=== PATIENT | male | born 1970 | race Caucasian/White ===

== ENCOUNTER 2016-12-05 10:56 | Outpatient (CLI) | payer OTHER | END 2016-12-05 10:57 | disposition home or self-care (01) | DX: G47.33 Obstructive sleep apnea (adult) (pediatric) (principal) ==

== ENCOUNTER 2017-02-01 14:11 | Outpatient (CLI) | payer OTHER | END 2017-02-01 14:12 | disposition home or self-care (01) | LOC: SC 14:11 | PROVIDERS: ATTEND Nurse Practitioner Family | DX: G47.33 Obstructive sleep apnea (adult) (pediatric) (principal) | CPT/HCPCS: 99212; 99214 ==

== ENCOUNTER 2017-07-27 08:50 | Outpatient (CLI) | payer OTHER | END 2017-07-27 08:51 | disposition home or self-care (01) | LOC: SC 08:50 | PROVIDERS: ATTEND Nurse Practitioner Family | DX: G47.33 Obstructive sleep apnea (adult) (pediatric) (principal) | CPT/HCPCS: 99212; 99214 ==

== ENCOUNTER 2017-12-14 08:36 | Outpatient (CLI) | payer OTHER ==
[2017-12-14 13:52] LABS: ALBUMIN 4.6 g/dL (3.2-5.5); ALBUMIN/GLOBULIN RATIO 1.7 (1.0-2.2); ALKALINE PHOSPHATASE 50 IU/L (42-121); ALT ALANINE AMINOTRANSFERASE 33 IU/L (10-60); AST ASPARTATE AMINOTRANSFERASE 34 IU/L (10-42); BILIRUBIN,TOTAL 0.5 mg/dL (0.2-1.0); BUN - BLOOD UREA NITROGEN 17 mg/dL (6-20); CALCIUM 9.4 mg/dL (8.5-10.3); CARBON DIOXIDE - CO2 27 mmol/L (21-32); CHLORIDE 104 mmol/L (101-111); CHOL/HDL RATIO 4.2 (<5.0); CHOLESTEROL 179 mg/dL; GFR - MDRD 80 (>89); GLUCOSE 106 mg/dL (70-100); HDL CHOLESTEROL 43 mg/dL; LDL CHOLESTEROL,CALCULATED 121 mg/dL; LDL/HDL RATIO 2.8 (<3.6); SODIUM 138 mmol/L (135-145); TOTAL PROTEIN 7.3 g/dL (6.7-8.2); VLDL CHOLESTEROL 15 mg/dL
== END 2017-12-14 08:37 ==
LOC: LAB.WCP 08:36
PROVIDERS: ATTEND Family Medicine
DX: E78.5 Hyperlipidemia, unspecified (principal); Z12.5 Encounter for screening for malignant neoplasm of prostate
CPT/HCPCS: 36415; 80053; 80061; 83721; 84153

== ENCOUNTER 2018-01-02 14:44 | Emergency (ER) | payer OTHER ==
[2018-01-02 14:56] VITALS: BP 161/100
--- NOTE | 2018-01-02 15:04 | ED Physician Documentation ---
PD HPI HEENT - Stated complaint Stated Complaint: L EAR PX - Chief complaint Chief Complaint: Heent - History obtained from History obtained from: Patient - History of Present Illness Timing - onset: Other (He had cough and cold symptoms over the last week which have resolved, but over the last day he has developed severe left ear pain radiating down towards the jaw and decreased hearing and some drainage today.) Review of Systems Constitutional: denies: Fever, Chills Nose: reports: Rhinorrhea / runny nose Throat: reports: Sore throat PD PAST MEDICAL HISTORY - Past Medical History Past Medical History: No Endocrine/Autoimmune: None GI: None : Kidney stones - Past Surgical History Past Surgical History: Yes - Present Medications Home Medications: Ambulatory Orders Medication Instructions Recorded Confirmed Loratadine [Claritin] 10 mg PO DAILY 12/26/14 06/23/15 Omeprazole [Prilosec] 20 mg PO DAILY 12/26/14 06/23/15 Amox/Clav 875/125 [Augmentin] 1 each PO Q12H #20 tablet 01/02/18 Ofloxacin [Floxin] 5 drops LEFTEAR BID 10 Days #1 01/02/18 drops buPROPion HCl [Bupropion HCl] 01/02/18 - Allergies Allergies/Adverse Reactions: Allergies Allergy/AdvReac Type Severity Reaction Status Date / Time Sulfa (Sulfonamide Allergy Intermediate Rash Verified 03/12/13 01:15 Antibiotics) - Social History Does the pt smoke?: No Smoking Status: Never smoker Does the pt drink ETOH?: No Does the pt have substance abuse?: No - Immunizations Immunizations are current?: Yes - POLST Patient has POLST: No PD ED PE NORMAL - Vitals Vital signs reviewed: Yes - General General: Alert and oriented X 3, No acute distress - HEENT HEENT: Pharynx benign, Other (Right TM is normal. He has severe left otitis media with perforation and a small amount of blood in the canal.) - Neck Neck: Supple, no meningeal sign, No bony TTP - Neuro Neuro: Alert and oriented X 3, Normal speech Results - Vitals Vitals: Vital Signs - 24 hr 01/02/18 14:52 Temperature 36.4 C L Heart Rate 89 Respiratory 18 Rate Blood Pressure 161/100 H O2 Saturation 98 Oxygen O2 Source Room air PD MEDICAL DECISION MAKING - Sepsis Event Vital Signs: Vital Signs - 24 hr 01/02/18 14:52 Temperature 36.4 C L Heart Rate 89 Respiratory 18 Rate Blood Pressure 161/100 H O2 Saturation 98 Oxygen O2 Source Room air Departure - Departure Disposition: 01 Home, Self Care Clinical Impression: Acute otitis media of left ear with perforation Condition: Good Record reviewed to determine appropriate education?: Yes Instructions: ED Rupture Eardrum Infec Follow-Up: Seferino Rawls MD [Primary Care Provider] - Within 1 week Prescriptions: Amox/Clav 875/125 [Augmentin] 1 each PO Q12H #20 tablet Ofloxacin [Floxin] 5 drops LEFTEAR BID 10 Days #1 drops Comments: Your blood pressure was elevated today on check into the emergency department. This does not mean that you have hypertension, it is a common phenomenon to come to the emergency department and have elevated blood pressure. I recommend that you see your primary care physician within the week to have it rechecked when you are feeling better.
== END 2018-01-02 15:07 | disposition home or self-care (01) ==
LOC: ED 14:44
DX: H66.92 Otitis media, unspecified, left ear (principal); R03.0 Elevated blood-pressure reading, without diagnosis of hypertension
CPT/HCPCS: 99283

== ENCOUNTER 2019-06-19 09:35 | Outpatient (CLI) | payer OTHER ==
--- NOTE | 2019-06-19 23:45 | XRAY Report ---
Reason: ARTHRITIS KNEES,BILATERAL Procedure Date: 06/19/2019 Accession Number: [id number] / [id number] Procedure: XR - Knee 3 View BILAT CPT Code: Final Report FULL RESULT: EXAMS: 1. Right Knee Radiography 2. Left Knee Radiography EXAM DATE:06/19/2019 10:50 AM. CLINICAL HISTORY:ARTHRITIS KNEES,BILATERAL. COMPARISON: None. TECHNIQUE: 3 views each. FINDINGS: Right Knee: Bones: Normal. No fractures or bone lesions. Joints: Mild osteoarthritis, with tiny osteophytes. No effusion. Soft Tissues: Normal. No soft tissue swelling. Left Knee: Bones: Normal. No fractures or bone lesions. Joints: Mild osteoarthritis, with tiny osteophytes. No effusion. Soft Tissues: Normal. No soft tissue swelling. IMPRESSION: Mild bilateral osteoarthritis. RADIA
== END 2019-06-19 09:36 | disposition home or self-care (01) ==
LOC: DI 09:35
PROVIDERS: ATTEND Family Medicine
DX: M17.0 Bilateral primary osteoarthritis of knee (principal)

== ENCOUNTER 2019-06-24 15:20 | Outpatient (CLI) | payer OTHER ==
[2019-06-24 17:40] VITALS: BP 126/90
--- NOTE | 2019-06-24 17:40 | SLEEP CARE CONSULTATION ---
Information from patient questionnaire entered by Sofia Ibrahim. I have reviewed and concur with the information entered by Sofia Ibrahim. This document represents the service I personally performed and the decisions made by me, Dana Joy, RN, MSN, HOTBED TRANSFER OPERATOR. History of Present Illness Previous diagnosis: Moderate, Obstructive Sleep Apnea-Hypopnea Syndrome AHI: 25.4 Reason for follow up: annual Equipment type: CPAP Equipment obtained from: [facility] [place] (having difficulty getting supplies) Mask style: Nasal (Dreamwear) Mask brand: Respironics Backup mask available: No Last cushion change: 1-2 months ago Prior sleep studies: Yes CPAP Compliance Data - Data Reviewed with Patient Average duration of nightly device use: 5h 47m Compliance rate %: 75 Current pressure setting (cmH2O): 9-15 Humidity settin Heated hose settin Average residual AHI: 2 Average large leak: 2s Subjective Patient concerns: reports: nasal congestion (chronic - uses saline nasal spray after CPAP use. ), dry mouth, nose, throat (only when water runs out of reservoir) Observed to snore while using device: No Current pressure setting perceived as: comfortable On therapy, patient: reports: sleeping better, awakening more refreshed, being more awake and alert during the day, more rested overall. denies: drowsiness while driving Initial [place] Sleepiness Scale score: 8 Current [place] Sleepiness Scale score: 4 Allergies and Home Medications Known drug allergies: Yes Home medication list reviewed: Yes Allergy and home medication list: Medication Name (generic/name brand) Strength & Dosage Omeprazole 20mg ? daily Claritin 10mg ? daily Welbutrin 150mg daily Review of Systems Review of systems same as previous: Yes Physical Exam Blood Pressure: 126/90 (stressful day reported / guidelines discussed for follow up and healt risks of high blood pressure) Heart Rate: 96 O2 Saturation: 97 Weight: 240 lb (with complete 30 pound gear for job, ) Impression and Plan Obstructive Sleep Apnea-Hypopnea Syndrome, moderate , with good compliance and apnea control. On CPAP therapy, he has improved sleep quality and continues to feel more rested overall. For supply concerns, he is informed that he can transfer to another DME. I will have the cash applications coordinator inform him of his options. A DWO prescription will be made. He is advised to obtain a minimum of 6 hours. Less than 5-6 hours of sleep can contribute to health risks. 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 He is aware of shift sleep practices to facilitate sleep during the day. I explained that most people require 7-9hours for optimal mental and physical function. Thus is he strives for 7 hours maybe he will get more sleep. Nasal congestion can be reduced by increasing the humidity. The heated hose is only to be adjusted if condensation. In addition, he is to use his saline nasal prior to CPAP to clear nose of dried secretions and adhering allergens. His night shower before bed will also facilitate nasal drainage. Patients apnea severity was reviewed and rationale for treatment to reduce apnea, improve sleep quality and reduce cardiovascular and cerebrovascular events. I also reviewed the benefit of his consistent CPAP use to his gerd. Patient is encouraged to call this office if he has any difficulty using CPAP or return of symptoms before his next appointment. PLAN: Continue with nasal CPAP pressure at 9-15 cm H2O. * Transfer of care to new DME. * Adjust humidity / heated hose * Implement methods to reduce nasal congestion. * Obtain more sleep. * He is to notify me if he finds that he snores with the mask or feels that the pressure is too much or too little. * Return for follow up in year , sooner if concerns. I spent 100% of this 33 minute office visit, face to face with the patient, with greater than 50% of the time counseling the patient and coordination of care.
== END 2019-06-24 15:21 | disposition home or self-care (01) ==
LOC: SC 15:20
PROVIDERS: ATTEND Nurse Practitioner Family
DX: G47.33 Obstructive sleep apnea (adult) (pediatric) (principal)
CPT/HCPCS: 99212; 99214

== ENCOUNTER 2020-05-14 18:50 | Emergency (ER) | payer OTHER ==
[2020-05-14 18:57] VITALS: BP 151/94
[2020-05-14] MEDS ORDERED: PROPARACAINE 0.5% OPHTH DROPS 15 ML EACHEYE STA (19:01)
--- NOTE | 2020-05-14 19:11 | ED Physician Documentation ---
PD HPI OPHTHO - Stated complaint Stated Complaint: LT EYE PX - Chief complaint Chief Complaint: Heent - History obtained from History obtained from: Patient - History of Present Illness Timing - onset: Yesterday Timing - duration: Days (1) Timing - details: Gradual onset Pain level max: 3 Pain level now: 1 Location: Left Quality / character: Aching Associated symptoms: Redness, Tearing, FB sensation. No: Swelling, Discharge, Photophobia Contributing factors: FB (wood after using chainsaw) Recently seen: Not recently seen Review of Systems Constitutional: denies: Fever Eyes: denies: Decreased vision PD PAST MEDICAL HISTORY - Past Medical History Past Medical History: Yes Endocrine/Autoimmune: None GI: None : Kidney stones HEENT: Chronic sinusitis Psych: Depression - Past Surgical History Past Surgical History: Yes - Present Medications Home Medications: Ambulatory Orders Medication Instructions Recorded Confirmed Loratadine [Claritin] 10 mg PO DAILY 12/26/14 06/23/15 Omeprazole [Prilosec] 20 mg PO DAILY 12/26/14 06/23/15 Amox/Clav 875/125 [Augmentin] 1 each PO Q12H #20 tablet 01/02/18 Ofloxacin [Floxin] 5 drops LEFTEAR BID 10 Days #1 01/02/18 drops buPROPion HCL [Bupropion HCl] 01/02/18 - Allergies Allergies/Adverse Reactions: Allergies Allergy/AdvReac Type Severity Reaction Status Date / Time Sulfa (Sulfonamide Allergy Intermediate Rash Verified 01/02/18 15:03 Antibiotics) - Social History Does the pt smoke?: No Smoking Status: Never smoker Does the pt drink ETOH?: No Does the pt have substance abuse?: No - Immunizations Immunizations are current?: Yes - POLST Patient has POLST: No PD ED PE NORMAL - Vitals Vital signs reviewed: Yes - General General: Alert and oriented X 3, No acute distress - HEENT HEENT: Moist mucous membranes, Other (L eye - conjunctival injection. FB under upper eyelid. Removed. No corneal abrasion.) - Neck Neck: Supple, no meningeal sign - Derm Derm: Warm and dry - Neuro Neuro: Alert and oriented X 3 - Psych Psych: Normal mood, Normal affect Results - Vitals Vitals: Vital Signs - 24 hr 05/14/20 18:52 Temperature 36.8 C Heart Rate 87 Respiratory 16 Rate Blood Pressure 151/94 H O2 Saturation 99 Oxygen O2 Source Room air PD MEDICAL DECISION MAKING - ED course Complexity details: considered differential, d/w patient ED course: Foreign body was removed from under the upper eyelid with a cotton swab. Tolerated well. No residual foreign body. No corneal abrasion. Eyelids were everted. Patient counseled regarding signs and symptoms for which I believe and urgent re-evaluation would be necessary. Patient with good understanding of and agreement to plan and is comfortable going home at this time This document was made in part using voice recognition software. While efforts are made to proofread this document, sound alike and grammatical errors may occur. Departure - Departure Disposition: Home, Self Care Clinical Impression: Eye foreign body Qualifiers: Encounter type: initial encounter Laterality: left Qualified Code(s): T15.92XA - Foreign body on external eye, part unspecified, left eye, initial encounter Condition: Good Instructions: ED Eye Particle Conjunctiva FB Rslv Follow-Up: Seferino Rawls MD [Primary Care Provider] - As Needed Comments: Return if you worsen. A piece of wood was removed from your eye tonight.
== END 2020-05-14 19:18 | disposition home or self-care (01) ==
LOC: ED 18:50
DX: T15.92XA Foreign body on external eye, part unspecified, left eye, initial encounter (principal); X58.XXXA Exposure to other specified factors, initial encounter
CPT/HCPCS: 65205; 99282; J3490

== ENCOUNTER 2020-11-16 15:28 | Emergency (ER) | payer OTHER ==
[2020-11-16] MEDS ORDERED: SODIUM CHLORIDE 0.9% 1,000 ML IV STA (15:57)
[2020-11-16 16:09] LABS: BASOPHILS # (AUTO) 0.1 10^3/uL (0.0-0.1); BASOPHILS % (AUTO) 0.6 %; EOSINOPHILS # (AUTO) 0.2 10^3/uL (0.0-0.7); EOSINOPHILS % (AUTO) 2.3 %; HCT - HEMATOCRIT 44.6 % (42.0-52.0); LYMPHOCYTES % (AUTO) 21.9 %; MEAN CORPUSCULAR HEMOGLOBIN 29.8 pg (27.0-31.0); MEAN CORPUSCULAR HGB CONC 33.6 g/dL (32.0-36.0); MEAN CORPUSCULAR VOLUME 88.7 fL (80.0-94.0); MEAN PLATELET VOLUME 9.4 fL (7.4-11.4); MONOCYTES # (AUTO) 0.7 10^3/uL (0.0-1.0); MONOCYTES % (AUTO) 7.3 %; NEUTROPHILS # (AUTO) 6.1 10^3/uL (1.5-6.6); NEUTROPHILS % (AUTO) 67.6 %; PLT - PLATELET COUNT 227 10^3/uL (130-450); RED BLOOD COUNT 5.03 10^6/uL (4.70-6.10)
--- NOTE | 2020-11-16 16:16 | ED Physician Documentation ---
History of Present Illness - Stated complaint Stated Complaint: SWEATING,ACHY,SHAKY - Chief complaint Chief Complaint: General - History obtained from History obtained from: Patient - History of Present Illness Timing: How many days ago (2) Pain level max: 0 Pain level now: 0 - Additonal information Additional information: Patient is a 50-year-old male who states he has not been feeling well for the past 2 to 3 days. He states that today he felt shaky and weak. Has had muscle aches. Intermittent headaches. No fevers. No shortness of breath. Mild cough. Occasional low abdominal pain. No diarrhea or constipation. No urinary symptoms. Has had his Covid vaccination already. Does not take any medications at home. No other medical issues. Currently asymptomatic. Nothing makes it better or worse Review of Systems Ten Systems: 10 systems reviewed and negative Constitutional: reports: Chills, Myalgias. denies: Fever Ears: denies: Ear pain Nose: denies: Rhinorrhea / runny nose, Congestion Throat: denies: Sore throat Cardiac: denies: Chest pain / pressure Respiratory: reports: Cough (mild). denies: Wheezing GI: reports: Abdominal Pain (occasional low abd pain.). denies: Nausea, Vomiting, Diarrhea, Hematemesis, Bloody / black stool : denies: Dysuria, Frequency, Hesitancy Skin: denies: Rash Musculoskeletal: denies: Neck pain, Back pain Neurologic: denies: Headache PD PAST MEDICAL HISTORY - Past Medical History Past Medical History: Yes Endocrine/Autoimmune: None GI: None : Kidney stones HEENT: Chronic sinusitis Psych: Depression - Past Surgical History Past Surgical History: Yes - Present Medications Home Medications: Ambulatory Orders Medication Instructions Recorded Confirmed Loratadine [Claritin] 10 mg PO DAILY 12/26/14 06/23/15 Omeprazole [Prilosec] 20 mg PO DAILY 12/26/14 06/23/15 Amox/Clav 875/125 [Augmentin] 1 each PO Q12H #20 tablet 01/02/18 Ofloxacin [Floxin] 5 drops LEFTEAR BID 10 Days #1 01/02/18 drops buPROPion HCL [Bupropion HCl] 01/02/18 cephALEXin [Keflex] 500 mg PO Q6H #28 cap 11/16/20 - Allergies Allergies/Adverse Reactions: Allergies Allergy/AdvReac Type Severity Reaction Status Date / Time Sulfa (Sulfonamide Allergy Intermediate Rash Verified 11/16/20 15:36 Antibiotics) - Social History Does the pt smoke?: No Smoking Status: Never smoker Does the pt drink ETOH?: No Does the pt have substance abuse?: No - Immunizations Immunizations are current?: Yes - POLST Patient has POLST: No PD ED PE NORMAL - Vitals Vital signs reviewed: Yes - General General: Alert and oriented X 3, No acute distress, Well developed/nourished - HEENT HEENT: PERRL, Ears normal, Moist mucous membranes, Pharynx benign - Neck Neck: Supple, no meningeal sign - Cardiac Cardiac: RRR, No murmur, Strong equal pulses - Respiratory Respiratory: No respiratory distress, Clear bilaterally - Abdomen Abdomen: Normal bowel sounds, Soft, Non tender, Non distended - Back Back: No CVA TTP, No spinal TTP - Derm Derm: Warm and dry - Extremities Extremities: No edema, No calf tenderness / cord - Neuro Neuro: Alert and oriented X 3, 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, No motor deficit, No sensory deficit, Normal speech - Psych Psych: Normal mood, Normal affect Results - Vitals Vitals: Vital Signs - 24 hr 11/16/20 11/16/20 11/16/20 15:36 17:40 18:02 Temperature 36.5 C Heart Rate 94 79 80 Respiratory 16 21 16 Rate Blood Pressure 138/82 H 131/74 H 140/78 H O2 Saturation 98 98 Oxygen O2 Source Room air - EKG (time done) 1603 Rate: Rate (enter#) (86) Rhythm: NSR [place]: LAD Intervals: Normal AR QRS: Normal Ischemia: Normal ST segments - Labs Labs: Laboratory Tests 11/16/20 11/16/20 11/16/20 16:01 16:02 16:02 WBC 9.0 RBC 5.03 Hgb 15.0 Hct 44.6 MCV 88.7 MCH 29.8 MCHC 33.6 RDW 12.0 Plt Count 227 MPV 9.4 Neut # (Auto) 6.1 Lymph # (Auto) 2.0 [place] # (Auto) 0.7 Eos # (Auto) 0.2 Baso # (Auto) 0.1 Absolute Nucleated RBC 0.00 Nucleated RBC % 0.0 Sodium 141 Potassium 3.8 Chloride 105 Carbon Dioxide 25 Anion Gap 11.0 BUN 19 Creatinine 1.1 Estimated GFR (MDRD) 71 L Glucose 146 H POC Whole Bld Glucose 153 H Calcium 9.4 Total Bilirubin 0.3 AST 24 ALT 42 Alkaline Phosphatase 53 Troponin I High Sens Total Protein 7.2 Albumin 4.5 Globulin 2.7 Albumin/Globulin Ratio 1.7 Lipase 58 H Urine Color Urine Clarity Urine pH Ur Specific [place] Urine Protein Urine Glucose (UA) Urine Ketones Urine Occult Blood Urine Nitrite Urine Bilirubin Urine Urobilinogen Ur Leukocyte Esterase Urine RBC Urine WBC Ur Squamous Epith Cells Urine Bacteria Ur Microscopic Review Urine Culture Comments Nasal Adenovirus (PCR) Nasal B. parapertussis DNA (PCR) Nasal Coronavir 229E PCR Nasal Coronavir HKU1 PCR Nasal Coronavir NL63 PCR Nasal Coronavir OC43 PCR Nasal Enterovir/Rhinovir PCR Nasal Influenza B PCR Nasal Influenza A PCR Nasal Parainfluen 1 PCR Nasal Parainfluen 2 PCR Nasal Parainfluen 3 PCR Nasal Parainfluen 4 PCR Nasal RSV (PCR) Nasal B.pertussis DNA PCR Nasal C.pneumoniae (PCR) Federico Human Metapneumo PCR Nasal M.pneumoniae (PCR) Nasal SARS-CoV-2 (PCR) 11/16/20 11/16/20 11/16/20 16:02 16:08 16:10 WBC RBC Hgb Hct MCV MCH MCHC RDW Plt Count MPV Neut # (Auto) Lymph # (Auto) [place] # (Auto) Eos # (Auto) Baso # (Auto) Absolute Nucleated RBC Nucleated RBC % Sodium Potassium Chloride Carbon Dioxide Anion Gap BUN Creatinine Estimated GFR (MDRD) Glucose POC Whole Bld Glucose Calcium Total Bilirubin AST ALT Alkaline Phosphatase Troponin I High Sens 4.9 Total Protein Albumin Globulin Albumin/Globulin Ratio Lipase Urine Color YELLOW Urine Clarity CLEAR Urine pH 6.0 Ur Specific [place] 1.025 Urine Protein NEGATIVE Urine Glucose (UA) NEGATIVE Urine Ketones NEGATIVE Urine Occult Blood NEGATIVE Urine Nitrite NEGATIVE Urine Bilirubin NEGATIVE Urine Urobilinogen 1 (NORMAL) Ur Leukocyte Esterase TRACE H Urine RBC 0-5 Urine WBC 6-10 H Ur Squamous Epith Cells MOD Squamous H Urine Bacteria Few Ur Microscopic Review INDICATED Urine Culture Comments NOT INDICATED Nasal Adenovirus (PCR) NOT DETECTED Nasal B. parapertussis DNA (PCR) NOT DETECTED Nasal Coronavir 229E PCR NOT DETECTED Nasal Coronavir HKU1 PCR NOT DETECTED Nasal Coronavir NL63 PCR NOT DETECTED Nasal Coronavir OC43 PCR NOT DETECTED Nasal Enterovir/Rhinovir PCR NOT DETECTED Nasal Influenza B PCR NOT DETECTED Nasal Influenza A PCR NOT DETECTED Nasal Parainfluen 1 PCR NOT DETECTED Nasal Parainfluen 2 PCR NOT DETECTED Nasal Parainfluen 3 PCR NOT DETECTED Nasal Parainfluen 4 PCR NOT DETECTED Nasal RSV (PCR) NOT DETECTED Nasal B.pertussis DNA PCR NOT DETECTED Nasal C.pneumoniae (PCR) NOT DETECTED Federico Human Metapneumo PCR NOT DETECTED Nasal M.pneumoniae (PCR) NOT DETECTED Nasal SARS-CoV-2 (PCR) NOT DETECTED - Rads (name of study) cxr Radiology: Prelim report reviewed, EMP read contemporaneously, See rad report (no acute disease) PD MEDICAL DECISION MAKING - ED course Complexity details: reviewed results, re-evaluated patient, considered differential, d/w patient ED course: Patient is a 50-year-old male who presents to the emergency department with feeling generally unwell. Appears to have a mild UTI, will place on antibiotics for this. Given Rocephin here. Negative viral PCR. Negative cardiac work-up. Abdomen is soft, nontender nondistended. No indication for CT scan. Normal labs otherwise. Given IV fluids. We will have him follow-up with his doctor for further care. Patient counseled regarding signs and symptoms for which I believe and urgent re-evaluation would be necessary. Patient with good understanding of and agreement to plan and is comfortable going home at this time This document was made in part using voice recognition software. While efforts are made to proofread this document, sound alike and grammatical errors may oc cur. Departure - Departure Disposition: 01 Home, Self Care Clinical Impression: UTI (urinary tract infection) Qualifiers: Urinary tract infection type: acute cystitis Hematuria presence: without hematuria Qualified Code(s): N30.00 - Acute cystitis without hematuria Condition: Good Instructions: ED UTI Cystitis Male Follow-Up: your,doctor in 1 week [Other] Prescriptions: cephALEXin [Keflex] 500 mg PO Q6H #28 cap Comments: Take all antibiotics until gone. You were given a dose of Rocephin tonight. Your testing does not show any other acute abnormalities. Return if you worsen. Follow-up with your doctor as needed for further care. Discharge Date/Time: 11/16/20 18:01
[2020-11-16 16:25] LABS: ALBUMIN 4.5 g/dL (3.2-5.5); ALBUMIN/GLOBULIN RATIO 1.7 (1.0-2.2); BILIRUBIN,TOTAL 0.3 mg/dL (0.2-1.0); CALCIUM 9.4 mg/dL (8.5-10.3); CREATININE 1.1 mg/dL (0.6-1.2); POTASSIUM 3.8 mmol/L (3.5-5.0); TOTAL PROTEIN 7.2 g/dL (6.7-8.2)
--- OUTSIDE RECORDS SUMMARY | 2020-11-16 16:25 | EXTERNAL MEDICAL SUMMARY RPT | Continuity of Care Document ---
:1970 Demographics Phone Unavailable Preferred Language Unknown Marital Status Unknown Judaism Affiliation Unknown Race Unknown Ethnic Group Unknown Author Organization [facility] Address [address] [id number] Phone Social History date description facility [phone]
--- NOTE | 2020-11-16 16:29 | XRAY Report ---
PROCEDURE: Chest 1 View X-Ray INDICATIONS: cough TECHNIQUE: One view of the chest was acquired. COMPARISON: 04/20/2016 FINDINGS: Surgical changes and devices: None. Lungs and pleura: No pleural effusions or pneumothorax. Lungs are clear. Mediastinum: Mediastinal contours appear normal. Heart size is normal. Bones and chest wall: No suspicious bony lesions. Overlying soft tissues appear unremarkable. IMPRESSION: No acute process. Reviewed by: Ariadne Gr MD on 11/16/2020 4:28 PM PDT Approved by: Ariadne Gr MD on 11/16/2020 4:28 PM PDT Station ID: [id number]
[2020-11-16 16:44] LABS: BILIRUBIN,URINE NEGATIVE (NEGATIVE); GLUCOSE, URINE (UA) NEGATIVE (NEGATIVE); KETONES,URINE (UA) NEGATIVE (NEGATIVE); LEUKOCYTE ESTERASE, URINE TRACE (NEGATIVE); NITRITE,URINE NEGATIVE (NEGATIVE); OCCULT BLOOD,URINE NEGATIVE (NEGATIVE); PROTEIN,URINE NEGATIVE (NEGATIVE); UROBILINOGEN,URINE 1 (NORMAL) E.U./dL (NORMAL)
[2020-11-16 16:50] LABS: CLARITY,URINE CLEAR (CLEAR)
[2020-11-16 17:05] LABS: BACTERIA,URINE Few /HPF (None Seen); RBC,URINE 0-5 /HPF (0-5); SQUAMOUS EPITHELIAL CELL,UR MOD Squamous (<= Few)
[2020-11-16 17:34] LABS: B. PARAPERTUSSIS- RESP PCR PAN NOT DETECTED; B. PERTUSSIS- RESP PCR PANEL NOT DETECTED; C. PNEUMONIAE- RESP PCR PANEL NOT DETECTED; CORONAVIRUS 229E-RESP PCR NOT DETECTED; CORONAVIRUS HKU1-RESP PCR NOT DETECTED; CORONAVIRUS NL63-RESP PCR NOT DETECTED; CORONAVIRUS OC43-RESP PCR NOT DETECTED; HUMAN METAPNEUMOVIRUS NOT DETECTED; INFLUENZA A- RESP PCR PANEL NOT DETECTED; INFLUENZA B - RESP PCR PANEL NOT DETECTED; M. PNEUMONIAE- RESP PCR PANEL NOT DETECTED; PARAINFLUENZA VIRUS 1 NOT DETECTED; PARAINFLUENZA VIRUS 2 NOT DETECTED; PARAINFLUENZA VIRUS 3 NOT DETECTED; PARAINFLUENZA VIRUS 4 NOT DETECTED; RHINOVIRUS/ENTEROVIRUS NOT DETECTED; RSV- RESP PCR PANEL NOT DETECTED; SARS-CoV-2 -RESP PCR PANEL NOT DETECTED
[2020-11-16] MEDS ORDERED: cefTRIAXone 1 GM VIAL IVP STA (17:50)
[2020-11-16 18:03] VITALS: BP 140/78
== END 2020-11-16 18:01 | disposition home or self-care (01) ==
LOC: ED 15:28
DX: N30.00 Acute cystitis without hematuria (principal); M79.10 Myalgia, unspecified site; R05 Cough; Z20.822 Contact with and (suspected) exposure to COVID-19
CPT/HCPCS: 0202U; 36415; 71045; 80053; 81001; 83690; 84484; 85025; 93005; 96374; 99284; 81003; 87086

== ENCOUNTER 2023-02-04 07:06 | Emergency (ER) | payer BC, OTHER ==
[2023-02-04] MEDS ORDERED: KETOROLAC 30 MG/ML VIAL IVP STA (07:26)
[2023-02-04] MEDS ORDERED: SODIUM CHLORIDE 0.9% 1,000 ML IV STA (07:26)
--- NOTE | 2023-02-04 07:29 | ED Physician Documentation ---
PD HPI ABD PAIN - Stated complaint Stated Complaint: ABDOMINAL PAIN - History obtained from History obtained from: Patient, Family - History of Present Illness Timing - onset: Last night Timing - duration: Hours Timing - details: Abrupt onset, Still present Pain level max: 7 Pain level now: 7 Quality: Sharp, Pain Location: LLQ Radiation: Left flank Improved by: Meds Worsened by: Other (nothing) Associated symptoms: Nausea. No: Vomiting Similar symptoms before: Diagnosis (kidney stone) Recently seen: Not recently seen - Additional information Additional information: 53-year-old Angelito Serrano has developed left flank pain consistent with what he has had previously with ureterolithiasis. He last had a stone about 10 years ago. He does describe having bladder stones as well and at one point requiring a suprapubic tube. Today he has had some nausea. He has not had vomiting and he was otherwise well prior to the onset of this. Review of Systems Constitutional: denies: Fever, Chills Eyes: denies: Decreased vision Ears: denies: Ear pain Nose: denies: Congestion Throat: denies: Sore throat Cardiac: denies: Chest pain / pressure Respiratory: denies: Dyspnea, Cough GI: reports: Abdominal Pain, Nausea. denies: Vomiting, Constipation, Diarrhea : denies: Dysuria, Frequency Skin: denies: Rash Musculoskeletal: reports: Back pain. denies: Neck pain, Extremity pain Neurologic: denies: Generalized weakness, Focal weakness, Numbness PD PAST MEDICAL HISTORY - Past Medical History Cardiovascular: None Respiratory: Sleep apnea, CPAP use Neuro: None Endocrine/Autoimmune: None GI: None, GERD : Kidney stones HEENT: Chronic sinusitis Psych: Depression Musculoskeletal: None Derm: None - Past Surgical History Past Surgical History: Yes - Present Medications Home Medications: Ambulatory Orders Medication Instructions Recorded Confirmed Omeprazole [Prilosec] 20 mg PO DAILY 12/26/14 02/04/23 HYDROcod/ACETAM 5/325 [[place] 5/325] 1 - 2 tablet PO Q6H PRN #14 tablet 02/04/23 - Allergies Allergies/Adverse Reactions: Allergies Allergy/AdvReac Type Severity Reaction Status Date / Time Sulfa (Sulfonamide Allergy Intermediate Rash Verified 02/04/23 07:31 Antibiotics) - Social History Does the pt smoke?: No Smoking Status: Never smoker Does the pt drink ETOH?: No Does the pt have substance abuse?: No - Immunizations Immunizations are current?: Yes - POLST Patient has POLST: No PD ED PE NORMAL - Vitals Vital signs reviewed: Yes (hypertensive) - General General: Alert and oriented X 3, No acute distress, Well developed/nourished - HEENT HEENT: Atraumatic, PERRL, EOMI - Neck Neck: Supple, no meningeal sign, No bony TTP - Cardiac Cardiac: RRR, No murmur - Respiratory Respiratory: No respiratory distress, Clear bilaterally - Abdomen Abdomen: Normal bowel sounds, Soft, Non tender, Non distended, No organomegaly - Back Back: No CVA TTP, No spinal TTP - Derm Derm: Normal color, Warm and dry, No rash - Extremities Extremities: No deformity, No edema - Neuro Neuro: Alert and oriented X 3, director of marketing and promotions 2-12 intact, No motor deficit, No sensory deficit, Normal speech Eye Opening: Spontaneous Motor: Obeys Commands Verbal: Oriented GCS Score: 15 - Psych Psych: Normal mood, Normal affect Results - Vitals Vitals: Vital Signs - 24 hr 02/04/23 02/04/23 07:31 07:57 Temperature 36.1 C L Heart Rate 73 66 Respiratory 18 18 Rate Blood Pressure 144/99 H 145/95 H O2 Saturation 99 100 Oxygen O2 Source Room air - Labs Labs: Laboratory Tests 02/04/23 02/04/23 02/04/23 07:30 07:40 07:40 WBC 7.3 RBC 5.28 Hgb 15.6 Hct 46.6 MCV 88.3 MCH 29.5 MCHC 33.5 RDW 12.0 Plt Count 244 MPV 9.5 Neut # (Auto) 4.4 Lymph # (Auto) 1.9 [place] # (Auto) 0.7 Eos # (Auto) 0.3 Baso # (Auto) 0.1 Absolute Nucleated RBC 0.00 Nucleated RBC % 0.0 Sodium 139 Potassium 3.9 Chloride 107 Carbon Dioxide 26 Anion Gap 6.0 BUN 21 H Creatinine 1.1 Estimated GFR (MDRD) 70 L Glucose 127 H Calcium 9.1 Total Bilirubin 0.4 AST 27 ALT 38 Alkaline Phosphatase 51 Total Protein 7.2 Albumin 4.4 Globulin 2.8 Albumin/Globulin Ratio 1.6 Lipase 56 H Urine Color BROWN Urine Clarity CLOUDY Urine pH 5.5 Ur Specific [place] 1.025 Urine Protein TRACE Urine Glucose (UA) NEGATIVE Urine Ketones NEGATIVE Urine Occult Blood LARGE H Urine Nitrite NEGATIVE Urine Bilirubin NEGATIVE Urine Urobilinogen 0.2 (NORMAL) Ur Leukocyte Esterase NEGATIVE Urine RBC TNTC H Urine WBC 6-10 H Ur Squamous Epith Cells RARE Squamous Urine Bacteria Moderate H Ur Microscopic Review INDICATED Urine Culture Comments NOT INDICATED - Rads (name of study) CT ab pel Relevant Findings:: Prelim report reviewed (see below 2-3 mm distal stone and R renal mass), EMP independent interpretation of test PD Medical Decision Making - ED course Complexity details: considered differential, d/w patient, d/w family Reviewed Lab Results: We reviewed a complete blood count showing a normal white blood cell count normal hemoglobin hematocrit and platelets electrolytes were normal BUN mildly elevated at 21 similar to what the patient has had previously with kidney stone. I interpret of these benign laboratory studies as consistent with the presenting symptoms being related to ureterolithiasis. This is confirmed with CT: Impression: Mild left hydronephrosis. There is a 2 to 3 mm left distal ureteral stone. Mild bladder wall thickening may be an artifact of under distention consider correlation with urinalysis. 3 cm right anterior intermediate density renal lesion possibly an intermediate density cyst please consider nonemergent sonographic confirmation other findings as above. ED course: 53-year-old Angelito serrano presents to the emergency department with signs and symptoms consistent with acute ureterolithiasis . IV access is gained and the patient is administered saline and Toradol. A CT scan of the abdomen pelvis is undertaken demonstrating the presence of a distal ureteral stone and hydronephrosis. Departure - Departure Disposition: 01 Home, Self Care Clinical Impression: Ureterolithiasis Condition: Stable Instructions: ED Stone Renal W Colic Follow-Up: Calixto Mcfarland MD [Provider Admit Priv/Credential] - Prescriptions: HYDROcod/ACETAM 5/325 [[place] 5/325] 1 - 2 tablet PO Q6H PRN #14 tablet PRN Reason: Pain Comments: Angelito, today looks like you have a stone in the distal ureter on the left side. This looks to be a small stone and should pass without much of a problem. There is an additional finding on your CT scan concerning for a renal cyst on your right kidney that will need follow-up with an outpatient ultrasound. My recommendation is to follow-up with the urologist Dr. Calixto Mcfarland. In the meantime additional fluids and pain medication as needed. Once the stone passes there is not much to be done but a follow up on the CT scan is still needed. I have e-scribed some [place] to the [facility] in [place]. It is a narcotic pain reliever and you cannot drive or operate machinery after taking it and it will make you constipated. If you do not have a bowel movement within 2 days take a stimulant laxitive like Milk of Magnesia.
[2023-02-04 07:44] LABS: BASOPHILS # (AUTO) 0.1 10^3/uL (0.0-0.1); BASOPHILS % (AUTO) 1.1 %; EOSINOPHILS # (AUTO) 0.3 10^3/uL (0.0-0.7); EOSINOPHILS % (AUTO) 3.8 %; HCT - HEMATOCRIT 46.6 % (42.0-52.0); HGB - HEMOGLOBIN 15.6 g/dL (14.0-18.0); LYMPHOCYTES # (AUTO) 1.9 10^3/uL (1.5-3.5); LYMPHOCYTES % (AUTO) 26.3 %; MEAN CORPUSCULAR HEMOGLOBIN 29.5 pg (27.0-31.0); MEAN CORPUSCULAR HGB CONC 33.5 g/dL (32.0-36.0); MEAN CORPUSCULAR VOLUME 88.3 fL (80.0-94.0); MEAN PLATELET VOLUME 9.5 fL (7.4-11.4); MONOCYTES # (AUTO) 0.7 10^3/uL (0.0-1.0); NEUTROPHILS # (AUTO) 4.4 10^3/uL (1.5-6.6); NEUTROPHILS % (AUTO) 59.5 %; PLT - PLATELET COUNT 244 10^3/uL (130-450); RED BLOOD COUNT 5.28 10^6/uL (4.70-6.10); WHITE BLOOD COUNT 7.3 x10^3/uL (4.8-10.8)
[2023-02-04 07:57] LABS: ALBUMIN 4.4 g/dL (3.2-5.5); ALBUMIN/GLOBULIN RATIO 1.6 (1.0-2.2); BILIRUBIN,TOTAL 0.4 mg/dL (0.2-1.0); CALCIUM 9.1 mg/dL (8.5-10.3); CREATININE 1.1 mg/dL (0.6-1.2); POTASSIUM 3.9 mmol/L (3.5-5.0); TOTAL PROTEIN 7.2 g/dL (6.7-8.2)
[2023-02-04 08:05] LABS: BILIRUBIN,URINE NEGATIVE (NEGATIVE); GLUCOSE, URINE (UA) NEGATIVE (NEGATIVE); KETONES,URINE (UA) NEGATIVE (NEGATIVE); LEUKOCYTE ESTERASE, URINE NEGATIVE (NEGATIVE); NITRITE,URINE NEGATIVE (NEGATIVE); OCCULT BLOOD,URINE LARGE (NEGATIVE); PH,URINE 5.5 PH (5.0-7.5); PROTEIN,URINE TRACE mg/dL (NEGATIVE); UROBILINOGEN,URINE 0.2 (NORMAL) E.U./dL (NORMAL)
[2023-02-04 08:07] LABS: CLARITY,URINE CLOUDY (CLEAR)
--- NOTE | 2023-02-04 08:12 | CT Report ---
PROCEDURE: ABDOMEN/PELVIS WO INDICATIONS: L flank pain TECHNIQUE: A CT scan of the abdomen and pelvis was performed without the use of intravenous contrast. Images we re recorded and evaluated at appropriate window settings. Reformats: coronal and sagittal. For radiat ion dose reduction, the following was used: automated exposure control, adjustment of mA and/or kV ac cording to patient size. COMPARISON: 03/12/2013 FINDINGS: Image quality: Good Lower chest: Mild fluid in the distal esophagus. Solid organs: Mild hepatic steatosis and suspected focal sparing adjacent to the gallbladder fossa. N o pathologic dilation of the biliary tree or pancreatic duct. Gallbladder is otherwise unremarkable. No splenomegaly. No adrenal nodules. Mild left hydronephrosis. There is a 2 to 3 mm left distal urete r stone. This is in a similar position compared to a stone that this patient had in 2013. There is a 3 cm right anterior intermediate density lesion that may represent an intermediate density cyst, however indeterminate on this study. Vessels and lymph nodes: No evidence of abdominal aortic aneurysm no pathologic lymph nodes by size c riteria. Bowel and peritoneum: No small bowel obstruction. Normal appendix. No pathologic ascites or abscess. Body wall: Unremarkable Pelvis: Bladder is underdistended. Dystrophic prostate calcifications. These findings are not well as sessed on CT. Bones: No acute or suspicious osseous finding. There are degenerative changes. IMPRESSION: Mild left hydronephrosis. There is a 2 to 3 mm left distal ureter stone. Mild bladder wall thickening may be an artifact of under distention. Consider correlation with urinal ysis. 3 cm right anterior intermediate density renal lesion, possibly an intermediate density cyst. Please consider nonemergent sonographic confirmation. Other findings as above. Reviewed by: Terry Spencer MD on 02/04/2023 8:11 AM PDT Approved by: Terry Spencer MD on 02/04/2023 8:11 AM PDT Station ID: [id number]
[2023-02-04 08:13] LABS: BACTERIA,URINE Moderate /HPF (None Seen); RBC,URINE TNTC /HPF (0-5); SQUAMOUS EPITHELIAL CELL,UR RARE Squamous (<= Few)
[2023-02-04 08:58] VITALS: BP 134/89
== END 2023-02-04 08:54 | disposition home or self-care (01) ==
LOC: ED 07:06
DX: N20.1 Calculus of ureter (principal); Z87.442 Personal history of urinary calculi
CPT/HCPCS: 36415; 80053; 81001; 81003; 83690; 85025; 87086; 96374; 99284

== ENCOUNTER 2023-03-15 18:47 | Outpatient (CLI) | payer BC, OTHER ==
--- NOTE | 2023-03-16 15:40 | Ultrasound Report ---
PROCEDURE: Retroperitoneal INDICATIONS: RIGHT RENAL CYST, KIDNEY STONE TECHNIQUE: Real-time scanning was performed of the retroperitoneal organs, with image documentation. COMPARISON: CT abdomen and pelvis without contrast dated 02/04/2023 FINDINGS: Kidneys: Kidneys are normal in size. Right kidney measures 11.5 cm long; left kidney measures 10.7 cm long. Right renal cortical thickness is 2.1 cm; left renal cortical thickness is 2.1 cm. There is a solid mass off of the lower pole of the right kidney with some degree of vascularity measuring 3.2 x 3.9 x 4.1 cm. Bladder: Pre-void bladder volume is 522.2 mL. Post-void residual is 10.2 mL. Pre-void images demon strate no intraluminal masses or stones. On pre-void images, no ureteral jets are noted with color D oppler interrogation. (Of note, ureteral jets may not be detectable in up to 25% of cases due to ins ufficient differences in specific gravity between ureteral and bladder urine). Miscellaneous: No free abdominal fluid. IMPRESSION: Findings are suspicious for a 4.2 cm maximum diameter renal cell carcinoma of the right kidney. Comment: Recommend renal protocol CT versus MRI for further evaluation. Reviewed by: Mauro Montiel MD on 03/16/2023 3:39 PM PDT Approved by: Mauro Montiel MD on 03/16/2023 3:39 PM PDT Station ID: [id number]
== END 2023-03-15 18:48 | disposition home or self-care (01) ==
LOC: DI 18:47
PROVIDERS: ATTEND Urology
DX: N20.1 Calculus of ureter (principal); N28.1 Cyst of kidney, acquired